=== PATIENT | female | born 1940 | race Caucasian/White ===

== ENCOUNTER 2020-09-06 19:58 | Emergency (ER) | payer MEDICARE, BC ==
--- NOTE | 2020-09-06 20:14 | EDM.PDOC ---
ED HPI GENERAL MEDICAL PROBLEM - General Chief Complaint: Lower Extremity Injury/Pain Stated Complaint: TOE INJURY Time Seen by Provider: 09/06/20 20:07 Source of Information: Reports: Patient, RN Notes Reviewed History Limitations: Reports: No Limitations - History of Present Illness INITIAL COMMENTS - FREE TEXT/NARRATIVE: Patient is an 80-year-old female who presents to the ER for the evaluation of a left pinky toe injury. She was at home, walking around her house and she ended up catching her toe on a piece of furniture, and she states that her toe was pointed out to the side. As she presents now, the toe seems to be in line again, and she states is not painful at all. She did not take any sort of Tylenol ibuprofen prior to coming to the ER. Denying any numbness or tingling in the toe. She has normal range of motion in the toe. No bruising is noted, there are no abrasions. Patient denies any other sick-like symptoms, fever/chills, cough/shortness of breath, nausea/vomiting/diarrhea. Treatments MANAGER FACILITY: Reports: Other (see below) Other Treatments MANAGER FACILITY: none Left Feet Pain Score (Numeric/FACES): 1 - Related Data Allergies Allergy/AdvReac Type Severity Reaction Status Date / Time clindamycin Allergy Diarrhea Verified 03/01/18 05:57 Penicillins Allergy Cannot Verified 03/01/18 05:57 Remember Home Meds: Home Meds Aspirin [Halfprin] 81 mg PO Q6H PRN 03/01/18 [History] Ciprofloxacin HCl [Cipro] 500 mg PO ASDIRECTED PRN 03/01/18 [History] Docusate Sodium [Colace] 100 mg PO DAILY 03/01/18 [History] Fish Oil/Bowdon-3 Fatty Acids [Fish Oil 1,000 MG] 1 gm PO DAILY 03/01/18 [History] Glucosamine/Chondro Thacker A [Cosamin DS] 1 tab PO DAILY 03/01/18 [History] Levothyroxine [Synthroid] 100 mcg PO DAILY 03/01/18 [History] Lutein/Minerals/Vit A,C & E [Ocuvite] 1 tab PO DAILY 03/01/18 [History] Multivitamin with Minerals [Multiple Vitamin] 1 tab PO DAILY 03/01/18 [History] Naproxen Sodium 220 mg PO Q12H PRN 03/01/18 [History] Pravastatin Sodium 20 mg PO BEDTIME 03/01/18 [History] Propranolol [Inderal] 40 mg PO DAILY 03/01/18 [History] Ranitidine [Zantac] 150 mg PO DAILY 03/01/18 [History] polyethylene glycoL 3350 [Polyethylene Glycol 3350] 17 gram PO DAILY 03/01/18 [History] Past Medical History HEENT History: Reports: Cataract, Retinal Detachment Cardiovascular History: Reports: High Cholesterol Gastrointestinal History: Reports: Hiatal Hernia 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 ED EXAM, GENERAL - Physical Exam Exam: See Below Exam Limited By: No Limitations General Appearance: Alert, WD/WN, No Apparent Distress Respiratory/Chest: No Respiratory Distress, Lungs Clear, Normal Breath Sounds, No Accessory Muscle Use, Chest Non-Tender Cardiovascular: Normal Peripheral Pulses, Regular Rate, Rhythm, No Edema Peripheral Pulses: 2+: Radial (L), Radial (R) Extremities: Normal Inspection, Normal Range of Motion, Normal Capillary Refill Neurological: Alert, Oriented, Normal Cognition, No Motor/Sensory Deficits Psychiatric: Normal Affect, Normal Mood Skin Exam: Warm, Dry, Intact, Normal Color, No Rash ED TRAUMA EXTREMITY PROCEDURES - Splinting Left 5th Digit Splint Site: left foot Pre-Procedure NV Status: Normal Post-Procedure NV Status: Normal Splint Material: Kristel Tape (left 5th digit to left 4th digit) Splint Design: Other (tape) Applied & Form Fitted By: Provider Provider Post-Splint Application NV Check: NV Status Normal, Good Position Complications: No Course - Vital Signs Last Recorded V/S: Last Vital Signs Temp 98.9 F 09/06/20 20:15 Pulse 74 09/06/20 20:15 Resp 20 09/06/20 20:15 BP 129/65 09/06/20 20:15 Pulse Ox - Orders/Labs/Meds Orders: Active Orders 24 hr Category Date Time Status Foot Comp Min 3V Lt [CR] Stat Exams 09/06/20 20:10 Taken DME for Discharge [COMM] Routine Oth 09/06/20 21:24 Ordered - Re-Assessments/Exams Free Text/Narrative Re-Assessment/Exam: 09/06/20 20:13 Patient presents to the ER for her toe injury, she is concerned about possible dislocation versus fracture and just wanted checked out, we will go ahead and get x-rays of the toe, does seem to be within normal limits on visual inspection and physical exam, likely if it would have been out of joint, it could have popped back in without difficulty. 09/06/20 21:23 The patient's x-ray has been completed, and there is a fracture in the middle fifth phalange of the patient's left foot. We will go ahead and kristel tape this to her fourth toe and place her in Ortho shoe and have her follow-up with Dr. Hoffman for possible pinning versus expectant management. Departure - Departure Time of Disposition: 21:24 Disposition: Home, Self-Care 01 Condition: Good Clinical Impression: Toe fracture, left Qualifiers: Encounter type: initial encounter Toe: lesser toe Fracture type: closed Phalanx: middle Fracture alignment: displaced Qualified Code(s): S92.522A - Displaced fracture of middle phalanx of left lesser toe(s), initial encounter for closed fracture - Discharge Information *PRESCRIPTION DRUG MONITORING PROGRAM REVIEWED*: No *COPY OF PRESCRIPTION DRUG MONITORING REPORT IN PATIENT PRECIOUS: No Instructions: Toe Fracture, [id number] Referrals: Gal Frank MD [Primary Care Provider] - Forms: ED Department Discharge Additional Instructions: You were evaluated in the ER today for your toe injury. X-rays did demonstrate that you do indeed have a fracture of your pinky toe on your left foot. This is in the middle phalange, this might benefit from surgical pinning, if you should choose to do so however we will kristel tape the toe to the fourth toe for tonight's purposes and place you in a Ortho shoe, you can walk and weight-bear as tolerated. You may take 500 mg Tylenol or 600 mg ibuprofen every 6 hours as needed for further pain relief. Do not exceed 4000 mg Tylenol or 3200 mg ibuprofen in a 24-hour time span. Please call Dr. Hoffman our grievance and appeals specialist, his telephone number for ongoing management of your toe fracture. Again this would be for possible surgical pinning versus expectant management, you may discuss your options with the grievance and appeals specialist and decide what is best for you. Please return to the ER at any time if symptoms change or worsen. Sepsis Event Note (ED) - Focused Exam Vital Signs: Vital Signs Temp Pulse Resp BP 09/06/20 20:15 98.9 F 74 20 129/65 - My Orders Last 24 Hours: My Active Orders 09/06/20 20:10 Foot Comp Min 3V Lt [CR] Stat 09/06/20 21:24 DME for Discharge [COMM] Routine - Assessment/Plan Last 24 Hours: My Active Orders 09/06/20 20:10 Foot Comp Min 3V Lt [CR] Stat 09/06/20 21:24 DME for Discharge [COMM] Routine
--- NOTE | 2020-09-08 10:46 | CR ---
Left foot: 3 views left foot were obtained. Comparison: No prior foot exam is available. Fracture is seen within the proximal phalanx of the fifth toe with mild angulation. Soft tissue swelling is also present. No additional fracture or other bony abnormality is appreciated. Impression: 1. Mildly angulated fracture involving the proximal phalanx of the left fifth toe. 2. No other acute abnormality is appreciated. Diagnostic code #3
== END 2020-09-06 21:50 | disposition home or self-care (01) ==
LOC: JD.ED 19:58
DX: S92.522A Displaced fracture of middle phalanx of left lesser toe(s), initial encounter for closed fracture (principal); E03.9 Hypothyroidism, unspecified; E78.00 Pure hypercholesterolemia, unspecified; Z79.82 Long term (current) use of aspirin; Z79.899 Other long term (current) drug therapy
CPT/HCPCS: 73630-26-LT; 73630-LT; 99283; 99283-25